=== PATIENT | male | born 1985 ===

== ENCOUNTER 2017-05-11 13:46 | Emergency (ER) | payer SELFPAY ==
--- NOTE | 2017-05-11 15:35 | ER Document Report ---
ED Psych Disorder / Suicide - General Chief Complaint: Medical Clearance Stated Complaint: OVERDOSE Time Seen by Provider: 05/11/17 15:20 Mode of Arrival: Ambulatory Information source: Patient, Relative Notes: This 32-year-old male patient brought to the emergency room by his spouse coming from [facility] for IVC commitment to [facility]. He has been taking a double dose of lithium for the past 2 weeks. He is prescribed 900 mg daily and by history he has been taking 1800 mg daily. When asked why he does this he states "do not know, do not care, I do what ever". 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 I was also able to confirm that there is a bed at [facility] if he can be medically cleared from this facility related to the lithium problem. He does not seem to exhibit any lithium toxicity symptoms at this time, but we will check a level. TRAVEL OUTSIDE OF THE [place] IN LAST 30 DAYS: No - Related Data Allergies/Adverse Reactions: No Known Allergies Allergy (Verified 05/11/17 14:00) Past Medical History - General Information source: Patient, Relative - Social History Smoking Status: Never Smoker Cigarette use (# per day): No Chew tobacco use (# tins/day): No Smoking Education Provided: No Frequency of alcohol use: Occasional Drug Abuse: Marijuana Lives with: Spouse/Significant other Family History: Reviewed & Not Pertinent Patient has suicidal ideation: Yes Patient has homicidal ideation: Yes - Past Medical History Cardiac Medical History: Reports: Hx Hypertension - Had been hypertensive on medication in the past but after weight loss medic Psychiatric Medical History: Reports: Hx Bipolar Disorder Past Surgical History: Reports: Hx Orthopedic Surgery - Right foot surgery when he was in the Review of Systems - Review of Systems Constitutional: No symptoms reported EENT: No symptoms reported Cardiovascular: No symptoms reported Respiratory: No symptoms reported Gastrointestinal: No symptoms reported Genitourinary: No symptoms reported Musculoskeletal: No symptoms reported Skin: No symptoms reported Hematologic/Lymphatic: No symptoms reported Neurological/Psychological: Depression Physical Exam - Vital signs Vitals: Temp Pulse Resp BP Pulse Ox 98.4 F 54 L 16 143/84 H 100 05/11/17 14:04 05/11/17 14:04 05/11/17 14:04 05/11/17 14:04 05/11/17 14:04 Interpretation: Normal - General General appearance: Appears well, Alert In distress: None - HEENT Head: Normocephalic, Atraumatic Eyes: Normal Pupils: PERRL Pharynx: Normal Neck: Normal - Respiratory Respiratory status: No respiratory distress Breath sounds: Normal - Cardiovascular Rhythm: Regular Heart sounds: Normal auscultation Murmur: No - Abdominal Inspection: Normal Bowel sounds: Normal Tenderness: Nontender - Back Back: Normal - Extremities General upper extremity: Normal inspection General lower extremity: Normal inspection - Neurological Neuro grossly intact: Yes - Psychological Associated symptoms: Manic, Psychomotor agitation - Skin Skin Temperature: Warm Skin Moisture: Dry Skin Color: Normal Course - Re-evaluation Re-evalutation: 05/11/17 17:03 [place] level is quite low at 0.3 so I suspect he has not telling the truth about the lithium he is taking. He is probably not even taking his prescribed dose. - Vital Signs Vital signs: Temp Pulse Resp BP Pulse Ox 98.4 F 54 L 16 143/84 H 100 05/11/17 14:04 05/11/17 14:04 05/11/17 14:04 05/11/17 14:04 05/11/17 14:04 - Laboratory Result Diagrams: 05/11/17 15:40 05/11/17 15:40 Laboratory results interpreted by me: 05/11/17 15:40 Potassium 5.4 H Calcium 10.8 H Salicylates < 1.0 L Acetaminophen < 10 L [place] 0.3 L - EKG Interpretation by Me EKG shows normal: Sinus rhythm, [place], Intervals, QRS Complexes. abnormal: ST-T Waves - Diffuse borderline T abnormalities Rate: Normal - 56 Rhythm: Arrthymia When compared to previous EKG there are: Previous EKG unavailable Discharge - Discharge Clinical Impression: Long-term current use of lithium Bipolar disorder Qualifiers: Active/Remission status: currently active Current bipolar episode type: manic Current episode severity: mild Qualified Code(s): F31.11 - Bipolar disorder, current episode manic without psychotic features, mild Condition: Stable Disposition: PSYCH HOSP/UNIT Additional Instructions: Your lithium level was actually subtherapeutic today. This would suggest that you really have not been taking excessive doses of lithium, and possibly not even taking your prescribed dose. You may be transported to [facility] at this time.
[2017-05-11 16:22] LABS: ABSOLUTE LYMPHOCYTES (AUTO) 1.3 10^3/uL (0.5-4.7); ABSOLUTE MONOCYTES (AUTO) 0.5 10^3/uL (0.1-1.4); ABSOLUTE NEUT (AUTO) 5.1 10^3/uL (1.7-8.2); BASOPHILS % (AUTO) 0.4 % (0-2); EOSINOPHILS % (AUTO) 0.5 % (0-6); HEMATOCRIT 44.9 % (37.9-51.0); HEMOGLOBIN 15.2 g/dL (13.5-17.0); LYMPHOCYTES % (AUTO) 18.9 % (13-45); MEAN CORPUSCULAR HGB CONC 33.9 g/dL (32.0-36.0); MEAN CORPUSCULAR VOLUME 92 fl (80-97); MONOCYTES % (AUTO) 6.8 % (3-13); PLATELET COUNT 278 10^3/uL (150-450); RED CELL DISTRIBUTION WIDTH 13.1 % (11.5-14.0); SEGMENTED NEUTROPHILS % (AUTO) 73.4 % (42-78); TOTAL CELLS COUNTED % (AUTO) 100 %; WHITE BLOOD COUNT 6.9 10^3/uL (4.0-10.5)
[2017-05-11 16:28] LABS: APPEARANCE,URINE CLEAR; BILIRUBIN,URINE NEGATIVE (NEGATIVE); COLOR,URINE YELLOW; GLUCOSE, URINE NEGATIVE (NEGATIVE); KETONES,URINE NEGATIVE (NEGATIVE); LEUKOCYTE ESTERASE,URINE NEGATIVE (NEGATIVE); NITRITE,URINE NEGATIVE (NEGATIVE); PROTEIN,URINE NEGATIVE (NEGATIVE); URINE SPECIFIC GRAVITY 1.023; UROBILINOGEN,URINE NEGATIVE mg/dL (<2.0)
[2017-05-11 16:41] LABS: ALANINE AMINOTRANSFERASE 25 U/L (21-72); ALKALINE PHOSPHATASE 54 U/L (38-126); ANION GAP 14 (5-19); ASPARTATE AMINO TRANSFERASE 21 U/L (17-59); BILIRUBIN,DIRECT 0.2 mg/dL (0.0-0.4); BILIRUBIN,TOTAL 0.8 mg/dL (0.2-1.3); BLOOD UREA NITROGEN 13 mg/dL (7-20); CALCIUM 10.8 mg/dL (8.4-10.2); CARBON DIOXIDE 28 mmol/L (22-30); CHLORIDE 102 mmol/L (98-107); GLUCOSE 80 mg/dL (75-110); LITHIUM 0.3 mEq/L (0.6-1.2); MAGNESIUM 1.8 mg/dL (1.6-2.3); POTASSIUM 5.4 mmol/L (3.6-5.0); SODIUM 143.5 mmol/L (137-145); TOTAL PROTEIN 7.8 g/dL (6.3-8.2)
[2017-05-11 16:42] LABS: URINE AMPHETAMINES SCREEN NEGATIVE; URINE BARBITURATES SCREEN NEGATIVE; URINE BENZODIAZEPINES SCREEN NEGATIVE; URINE COCAINE SCREEN NEGATIVE; URINE MARIJUANA (THC) SCREEN UNCONFIRMED POSITIVE; URINE METHADONE SCREEN NEGATIVE; URINE PHENCYCLIDINE SCREEN NEGATIVE
[2017-05-11 16:46] LABS: ACETAMINOPHEN < 10 ug/mL (10-30); ALCOHOL < 10 mg/dL (NONE DETECTED); SALICYLATE < 1.0 mg/dL (2.0-20.0)
[2017-05-11 18:30] VITALS: BP 161/97
--- NOTE | 2017-05-11 18:39 | EKG REPORT ---
SEVERITY:- BORDERLINE ECG - SINUS RHYTHM PROBABLE LEFT ATRIAL ABNORMALITY BORDERLINE PROLONGED QT INTERVAL : Confirmed by: Edy Valdovinos MD 11-May-2017 18:39:01
--- NOTE | 2017-05-11 18:39 | EKG REPORT ---
SEVERITY:- BORDERLINE ECG - SINUS WITH PACS [id number] BORDERLINE T ABNORMALITIES, DIFFUSE LEADS : Confirmed by: Edy Valdovinos MD 11-May-2017 18:38:47
== END 2017-05-11 18:20 ==
LOC: ER 13:46
DX: F31.11 Bipolar disorder, current episode manic without psychotic features, mild (principal); Z79.899 Other long term (current) drug therapy; I10 Essential (primary) hypertension; I49.9 Cardiac arrhythmia, unspecified
CPT/HCPCS: 36415; 80053; 80178; 80307; 81001; 83735; 85025; 93005; 93010; 99283